=== PATIENT | male | born 1950 | race Hispanic/Latino ===

== ENCOUNTER → 2025-04-25 08:41 | Outpatient (REF) | payer MEDICARE, OTHER, SELFPAY | LOC: RAD 08:41 | PROVIDERS: ATTENDING PHYSICIAN Internal Medicine Cardiovascular Disease; FAMILY PHYSICIAN Family Medicine | DX: I35.2 Nonrheumatic aortic (valve) stenosis with insufficiency (principal); T82.857A Stenosis of other cardiac prosthetic devices, implants and grafts, initial encounter | CPT/HCPCS: 75572; Q9967 ==